=== PATIENT | male | born 1960 | race Caucasian/White ===

== ENCOUNTER 2017-08-15 08:32 | Emergency (ER) | payer BC ==
[2017-08-15 08:44] VITALS: BP 109/74
--- NOTE | 2017-08-15 09:11 | UC ---
Respiratory Complaint HPI - HPI Summary HPI Summary: 56 yo male ill for about a week with URI symptoms the past three days it has felt like it's in his chest no f/c no CP or SOB no n/v/d - History of Current Complaint Chief Complaint: UCRespiratory Stated Complaint: RESPRITORY/COUGH Time Seen by Provider: 08/15/17 08:55 Hx Obtained From: Patient Onset/Duration: Gradual Onset, Lasting Days Timing: Constant Severity Initially: Mild Severity Currently: Moderate Pain Intensity: 2 Pain Scale Used: 0-10 Numeric Character: Cough: Nonproductive Aggravating Factors: Deep Breaths Alleviating Factors: Nothing Associated Signs And Symptoms: Positive: URI - Allergies/Home Medications Allergies/Adverse Reactions: Allergies Allergy/AdvReac Type Severity Reaction Status Date / Time seasonal Allergy Sneezing Uncoded 08/15/17 08:39 Home Medications: Home Medications GuaiFENesin DM sugar free* [Robitussin DM sugar free*] 5 ml PO Q4H PRN 08/15/17 [History Confirmed 08/15/17] PMH/Surg Hx/FS Hx/Imm Hx Previously Healthy: Yes - Surgical History Surgical History: None - Family History Known Family History: Positive: None Negative: Cardiac Disease, Hypertension, Diabetes, Respiratory Disease - Social History Alcohol Use: Occasionally Substance Use Type: None Smoking Status (MU): Never Smoked Tobacco - Immunization History Most Recent Influenza Vaccination: not this season Review of Systems Constitutional: Fatigue Skin: Negative Eyes: Negative ENT: Nasal Discharge, Sinus Congestion, Sinus Pain/Tenderness Respiratory: Cough Cardiovascular: Negative Gastrointestinal: Negative Genitourinary: Negative Motor: Negative Neurovascular: Negative Musculoskeletal: Negative Neurological: Negative Psychological: Negative Is Patient Immunocompromised?: No All Other Systems Reviewed And Are Negative: Yes Physical Exam Triage Information Reviewed: Yes Appearance: Well-Appearing, No Pain Distress, Well-Nourished Vital Signs: Initial Vital Signs Temp 97.8 F 08/15/17 08:41 Pulse 84 08/15/17 08:41 Resp 18 08/15/17 08:41 BP 109/74 08/15/17 08:41 Pulse Ox 100 08/15/17 08:41 Vital Signs Reviewed: Yes Eyes: Positive: Conjunctiva Clear ENT: Positive: Hearing grossly normal, Pharynx normal, Nasal congestion, TMs normal, Uvula midline. Negative: Nasal drainage, Tonsillar swelling, Tonsillar exudate, Trismus, Muffled voice, Hoarse voice, Dental tenderness, Sinus tenderness Neck: Positive: Supple, Nontender, No Lymphadenopathy Respiratory: Positive: No respiratory distress, No accessory muscle use, Rhonchi - with forced expiration Cardiovascular: Positive: RRR, No Murmur Musculoskeletal: Positive: ROM Intact, No Edema Neurological: Positive: Alert Psychological Exam: Normal Skin Exam: Normal UC Diagnostic Evaluation - Laboratory O2 Sat by Pulse Oximetry: 100 - normal/not hyhpoxic Respiratory Course/Dx - Differential Dx/Diagnosis Provider Diagnoses: acute bronchitis Discharge - Discharge Plan Condition: Stable Disposition: HOME Prescriptions: Amoxicillin PO (*) [Amoxicillin 875 MG (*)] 875 mg PO BID #14 tab Benzonatate CAP* [Tessalon CAP*] 100 - 200 mg PO TID PRN #15 cap PRN Reason: Cough Patient Education Materials: Acute Bronchitis (ED) Referrals: Ananda Kaplan MD [Primary Care Provider] - 5 Days (if not better) Additional Instructions: recheck for new or worsening symptoms
== END 2017-08-15 09:13 | disposition home or self-care (01) ==
LOC: UCCORT 08:32
DX: J20.9 Acute bronchitis, unspecified (principal)
CPT/HCPCS: 99212; G0463

== ENCOUNTER 2019-08-07 18:18 | Emergency (ER) | payer BC ==
[2019-08-07] MEDS ORDERED: NS 0.9% 1000 ML** 1,000 ML IV ONE (18:38)
--- NOTE | 2019-08-07 18:44 | UC ---
General HPI - HPI Summary HPI Summary: 58-year-old male comes in with a chief complaint of feeling lightheaded and dizzy. Been having episodes on and off today with this with 6 episodes. Denies any chest pain does feel little bit lightheaded. No history of irregular rhythms. He's had a similar episodes about 2 weeks ago but it did not last this long. - History of Current Complaint Chief Complaint: UCDizziness Stated Complaint: DIZZINESS/LIGHT HEADED Time Seen by Provider: 08/07/19 18:33 Pain Intensity: 0 - Allergy/Home Medications Allergies/Adverse Reactions: Allergies Allergy/AdvReac Type Severity Reaction Status Date / Time seasonal Allergy Sneezing Uncoded 08/07/19 18:39 PMH/Surg Hx/FS Hx/Imm Hx Previously Healthy: Yes - Surgical History Surgical History: None - Family History Known Family History: Positive: None Negative: Cardiac Disease, Hypertension, Diabetes, Respiratory Disease - Social History Alcohol Use: Occasionally Substance Use Type: None Smoking Status (MU): Never Smoked Tobacco - Immunization History Most Recent Influenza Vaccination: not this season Review of Systems All Other Systems Reviewed And Are Negative: Yes Constitutional: Positive: Other - see hpi Skin: Positive: Negative Eyes: Positive: Negative ENT: Positive: Negative Respiratory: Positive: Other - see hpi Cardiovascular: Positive: Other - see hpi Gastrointestinal: Positive: Negative Motor: Positive: Negative Neurovascular: Positive: Negative Musculoskeletal: Positive: Negative Neurological: Positive: Negative Psychological: Positive: Negative Is Patient Immunocompromised?: No Physical Exam Triage Information Reviewed: Yes Appearance: Well-Appearing, No Pain Distress, Well-Nourished Vital Signs: Initial Vital Signs Temp 97.8 F 08/07/19 18:26 Pulse 159 08/07/19 18:26 BP 102/79 08/07/19 18:26 Pulse Ox 99 08/07/19 18:26 Vital Signs Reviewed: Yes Eye Exam: Normal Eyes: Positive: Conjunctiva Clear Neck: Positive: Supple Respiratory: Positive: Lungs clear, Normal breath sounds, No respiratory distress Cardiovascular: Positive: Tachycardia Musculoskeletal: Positive: Strength Intact, ROM Intact, No Edema Neurological: Positive: Alert, Muscle Tone Normal Psychological: Positive: Age Appropriate Behavior Skin Exam: Normal Diagnostics - EKG Cardiac Rate: Tachycardia - AT 1828. Tachycardic at 159 beats per minutes. Rhythm is regular Ectopy: None ST Segment: Normal Course/Dx - Course Course Of Treatment: In clinic an IV was started and normal saline was started by nursing. Patient was transported to [facility] by [facility] ambulance. On departure from the clinic his heart rate was 90. I spoke to the [facility] transfer center about the patient. - Diagnoses Provider Diagnosis: Tachycardia with heart rate 141-160 beats per minute, Lightheadedness Discharge ED - Sign-Out/Discharge Documenting (check all that apply): Patient Departure All imaging exams completed and their final reports reviewed: No Studies - Discharge Plan Condition: Stable Disposition: TRANS HIGHER LVL OF CARE FAC Referrals: Ananda Kaplan MD [Primary Care Provider] - - Billing Disposition and Condition Condition: STABLE Disposition: Trans Higher Lvl of Care Fac
[2019-08-07 18:55] VITALS: BP 105/68
== END 2019-08-07 18:50 | disposition short-term general hospital (02) ==
LOC: UCCORT 18:18
DX: R00.0 Tachycardia, unspecified (principal); R42 Dizziness and giddiness; Z91.09 Other allergy status, other than to drugs and biological substances
CPT/HCPCS: 93005; 99213; G0463